=== PATIENT | male | born 1995 | race Caucasian/White ===

== ENCOUNTER 2024-08-20 20:48 | Emergency (ER) | payer OTHER ==
[2024-08-20] MEDS: KETOROLAC 15 MG/ML 1 ML VIAL IVP STA (22:23)
[2024-08-20] MEDS: SODIUM CHLORIDE 0.9% 1,000 ML IV ONE (22:23)
--- NOTE | 2024-08-20 22:28 | ED ---
General Adult HPI <Corinne Reardon - Last Filed: 08/21/24 00:27> - General Source: patient Mode of arrival: ambulatory Limitations: no limitations <Raúl Zavaleta - Last Filed: 08/23/24 13:51> - General Chief complaint: Skin/Abscess/Foreign Body Stated complaint: R Toe Injury Time Seen by Provider: 08/20/24 21:20 - History of Present Illness Initial comments: 29-year-old male presenting with chief complaint of blister to the right great toe. This has been there for the last 2 weeks. Patient states he is having increased pain. He states that the blister started after he was wearing very thick socks and tight shoes. No history of diabetes or any other chronic health issues. He does have a callus to the right second toe as well. No fevers. He is having some redness at the base of the toe. He is having some serosanguineous discharge. (Raúl Zavaleta) - Related Data Previous Rx's Medication Instructions Recorded Bacitracin Zinc Oint 1 applic TOPICAL BID #28 gm 08/21/24 Allergies Allergy/AdvReac Type Severity Reaction Status Date / Time No Known Allergies Allergy Verified 08/20/24 21:16 Review of Systems ROS Other: All systems not noted in ROS Statement are negative. <Corinne Reardon - Last Filed: 08/21/24 00:27> ROS Other: All systems not noted in ROS Statement are negative. <Raúl Zavaleta - Last Filed: 08/23/24 13:51> ROS Statement: Those systems with pertinent positive or pertinent negative responses have been documented in the HPI. Past Medical History Past Medical History: No Reported History Additional Past Surgical History / Comment(s): foot surgery Smoking Status: Current every day smoker Past Alcohol Use History: None Reported <Raúl Zavaleta - Last Filed: 08/23/24 13:51> General Exam Limitations: no limitations General appearance: alert, in no apparent distress Head exam: Present: atraumatic, normocephalic, normal inspection Eye exam: Present: normal appearance, EOMI Neck exam: Present: normal inspection. Absent: meningismus Respiratory exam: Absent: respiratory distress Cardiovascular Exam: Present: regular rate Right Foot/Toe exam: Present: full ROM, tenderness (First and second toe), swelling (First and second toe), ecchymosis, erythema Neurovascular tendon exam: Present: no vascular compromise Neurological exam: Present: alert, oriented X3 Psychiatric exam: Present: normal affect, normal mood <Zavaleta,Malulisses - Last Filed: 08/23/24 13:51> Course Vital Signs 08/20/24 08/21/24 21:07 01:06 Temperature 98.5 F 98.4 F Pulse Rate 66 65 Respiratory 22 17 Rate Blood Pressure 158/103 136/84 O2 Sat by Pulse 100 99 Oximetry Medical Decision Making - Lab Data Result diagrams: 08/20/24 22:22 08/20/24 22:22 <Corinne Reardon - Last Filed: 08/21/24 00:27> - Lab Data Result diagrams: 08/20/24 22:22 08/20/24 22:22 <ZavaletaGusulisses - Last Filed: 08/23/24 13:51> - Medical Decision Making Was pt. sent in by a medical professional or institution (, PA, ENERGY PROFESSIONAL, urgent care, hospital, or jail...) When possible be specific @ -No Did you speak to anyone other than the patient for history (EMS, parent, family, police, friend...)? What history was obtained from this source @ -No Did you review nursing and triage notes (agree or disagree)? Why? @ -I reviewed and agree with nursing and triage notes Were old charts reviewed (outside hosp., previous admission, EMS record, old EKG, old radiological studies, urgent care reports/EKG's, jail records)? Report findings @ -No old charts were reviewed Differential Diagnosis (chest pain, altered mental status, abdominal pain women, abdominal pain men, vaginal bleeding, weakness, fever, dyspnea, syncope, headache, dizziness, GI bleed, back pain, seizure, CVA, palpatations, mental health, musculoskeletal)? @ -Differential Musculoskeletal Muscular strain, contusion, ligament sprain, fracture, arthritis, septic arthritis, bursitis, cellulitis, muscle spasm, nerve compression, DVT, arterial occlusion, herpes zoster, electrolyte abnormality, tumor.... This is not meant to be in all inclusive list EKG interpreted by me (3pts min.). @ -As above X-rays interpreted by me (1pt min.). @ -X-ray by my interpretation shows no fracture or dislocation, no evidence for erosion to suggest osteomyelitis. Formal report shows soft tissue swelling CT interpreted by me (1pt min.). @ -None done U/S interpreted by me (1pt. min.). @ -None done What testing was considered but not performed or refused? (CT, X-rays, U/S, labs)? Why? @ -None What meds were considered but not given or refused? Why? @ -None Did you discuss the management of the patient with other professionals (professionals i.e. , PA, ENERGY PROFESSIONAL, lab, RT, psych nurse, psychotherapist social worker, asset specialist, teacher, air intelligence officer, shelter case manager)? Give summary @ -No Was smoking cessation discussed for >3mins.? @ -No Was critical care preformed (if so, how long)? @ -No Were there social determinants of health that impacted care today? How? (Homelessness, low income, unemployed, alcoholism, drug addiction, transportation, low edu. Level, literacy, decrease access to med. care, longterm, rehab)? @ -No Was there de-escalation of care discussed even if they declined (Discuss DNR or withdrawal of care, Hospice)? DNR status @ -No What co-morbidities impacted this encounter? (DM, HTN, Smoking, COPD, CAD, Cancer, CVA, ARF, Chemo, Hep., AIDS, mental health diagnosis, sleep apnea, morbid obesity)? @ -None Was patient admitted / discharged? Hospital course, mention meds given and route, prescriptions, significant lab abnormalities, going to OR and other pertinent info. @ -29-year-old male presenting with chief complaint of large blister to the right great toe. He is currently on antibiotics, was worried it was getting infected. No injury or trauma, states that he was wearing very thick socks with tight shoes that initially brought the blister on. On examination there is some serosanguineous drainage, no lymphangitis. Patient is afebrile. No leukocytosis or anemia. CRP is WNL. X-ray shows no acute process on my interpretation, formal report is pending. We are awaiting the formal x-ray report, anticipate discharge home with bacitracin ointment and continuing the patient's antibiotics. Patient signed out to Corinne Reardon PA-C pending x-ray report. Anticipated discharge instructions are uploaded, subject to change. I discussed this case in detail with my attending Dr. Hansen Undiagnosed new problem with uncertain prognosis? @ -No Drug Therapy requiring intensive monitoring for toxicity (Heparin, Nitro, Insulin, Cardizem)? @ -No Were any procedures done? @ -No Diagnosis/symptom? @ -Blister of toe Acute, or Chronic, or Acute on Chronic? @ -Acute Uncomplicated (without systemic symptoms) or Complicated (systemic symptoms)? @ -Uncomplicated Side effects of treatment? @ -No Exacerbation, Progression, or Severe Exacerbation? @ -No Poses a threat to life or bodily function? How? (Chest pain, [place], [place], pneumonia, PE, COPD, DKA, ARF, appy, cholecystitis, CVA, Diverticulitis, Homicidal, Suicidal, threat to staff... and all critical care pts) @ -Low likelihood (Raúl Zavaleta) - Lab Data Lab Results 08/20/24 08/20/24 Range/Units 22:22 22:22 WBC 8.9 (3.8-10.6) k/uL RBC 4.79 (4.30-5.90) m/uL Hgb 14.2 (13.0-17.5) gm/dL Hct 43.6 (39.0-53.0) % MCV 90.9 (80.0-100.0) fL MCH 29.7 (25.0-35.0) pg MCHC 32.7 (31.0-37.0) g/dL RDW 13.9 (11.5-15.5) % Plt Count 205 (150-450) k/uL MPV 8.7 Neutrophils % 62 % Lymphocytes % 27 % Monocytes % 4 % Eosinophils % 4 % Basophils % 0 % Neutrophils # 5.6 (1.3-7.7) k/uL Lymphocytes # 2.4 (1.0-4.8) k/uL Monocytes # 0.4 (0-1.0) k/uL Eosinophils # 0.4 (0-0.7) k/uL Basophils # 0.0 (0-0.2) k/uL Sodium 137 (137-145) mmol/L Potassium 4.5 (3.5-5.1) mmol/L Chloride 99 (98-107) mmol/L Carbon Dioxide 29 (22-30) mmol/L Anion Gap 9 mmol/L BUN 31 H (9-20) mg/dL Creatinine 0.97 (0.66-1.25) mg/dL Est GFR (CKD-EPI)AfAm >90 (>60 ml/min/1.73 sqM) Est GFR (CKD-EPI)NonAf >90 (>60 ml/min/1.73 sqM) Glucose 88 (74-99) mg/dL Calcium 10.0 (8.4-10.2) mg/dL Total Bilirubin 0.3 (0.2-1.3) mg/dL AST 29 (17-59) U/L ALT 23 (4-49) U/L Alkaline Phosphatase 40 (38-126) U/L C-Reactive Protein <0.5 (<1.0) mg/dL Total Protein 7.8 (6.3-8.2) g/dL Albumin 4.7 (3.5-5.0) g/dL Disposition Time of Disposition: 00:27 <Corinne Reardon - Last Filed: 08/21/24 00:27> Is patient prescribed a controlled substance at d/c from ED?: No <Raúl Zavaleta - Last Filed: 08/23/24 13:51> Clinical Impression: Blister of toe Disposition: HOME SELF-CARE Condition: Good Instructions (If sedation given, give patient instructions): Blister (ED) Additional Instructions: Follow-up with PCP. Report back to ER for any new or worsening symptoms. Take Motrin and Tylenol as needed for pain control. Continue your antibiotics. Use antibiotic ointment over the area. Keep the toe clean dry and covered. Prescriptions: Bacitracin Zinc Oint 1 applic TOPICAL BID #28 gm Referrals: None,Stated [Primary Care Provider] - 1-2 days Forms: Area PCPs
[2024-08-20 22:34] LABS: Basophils % (A) 0 %; Eosinophils # (A) 0.4 k/uL (0-0.7); Eosinophils % (A) 4 %; HCT 43.6 % (39.0-53.0); HGB 14.2 gm/dL (13.0-17.5); Lymphocytes # (A) 2.4 k/uL (1.0-4.8); Lymphocytes % (A) 27 %; MCH 29.7 pg (25.0-35.0); MCHC 32.7 g/dL (31.0-37.0); MCV 90.9 fL (80.0-100.0); Mean Platelet Volume 8.7; Monocytes # (A) 0.4 k/uL (0-1.0); Monocytes % (A) 4 %; Neutrophils # (A) 5.6 k/uL (1.3-7.7); Neutrophils % (A) 62 %; Platelet Count 205 k/uL (150-450); RBC 4.79 m/uL (4.30-5.90); RDW 13.9 % (11.5-15.5); WBC 8.9 k/uL (3.8-10.6)
[2024-08-20 23:08] LABS: ALT 23 U/L (4-49); AST 29 U/L (17-59); African American GFR (CKD) >90 (>60 ml/min/1.73 sqM); Albumin 4.7 g/dL (3.5-5.0); Alkaline Phosphatase 40 U/L (38-126); Anion Gap 9 mmol/L; Blood Urea Nitrogen 31 mg/dL (9-20); C Reactive Protein <0.5 mg/dL (<1.0); Carbon Dioxide 29 mmol/L (22-30); Chloride 99 mmol/L (98-107); Glucose 88 mg/dL (74-99); Non-African American GFR(CKD) >90 (>60 ml/min/1.73 sqM); Sodium 137 mmol/L (137-145); Total Bilirubin 0.3 mg/dL (0.2-1.3); Total Protein 7.8 g/dL (6.3-8.2)
[2024-08-20 23:10] LABS: Potassium 4.5 mmol/L (3.5-5.1)
--- NOTE | 2024-08-21 00:25 | XR ---
EXAM: XR Right Toes, 3 Views CLINICAL HISTORY: Pain and blisters to the first and second toe TECHNIQUE: Frontal, lateral and oblique views of right great toe. COMPARISON: No relevant prior studies available. FINDINGS: Bones/joints: No fracture or dislocation. Soft tissues: Soft tissue swelling of great toe. No soft tissue gas or radiopaque foreign object. IMPRESSION: Soft tissue swelling of great toe.
[2024-08-21] MEDS ORDERED: BACITRACIN OINT 1 EACH PACKET TOPICAL ONE (00:54)
[2024-08-21 01:08] VITALS: BP 136/84; PULSE 65; RESP 17; TEMP 98.4
== END 2024-08-21 01:08 | disposition home or self-care (01) ==
LOC: EC 20:48
DX: S90.421A Blister (nonthermal), right great toe, initial encounter (principal); F17.200 Nicotine dependence, unspecified, uncomplicated; X58.XXXA Exposure to other specified factors, initial encounter
CPT/HCPCS: 36415; 80053; 85025; 86140; 73660; 99284; 96374; 96361; J1885